=== PATIENT | male | born 1930 | race African-American/Black ===

== ENCOUNTER 2016-06-06 17:12 | Inpatient (IN) | payer OTHER ==
[~2016-06-06] VITALS: Ht 177.8 cm; Wt 79.4 kg
[2016-06-06 18:52] LABS: BASOPHILS % 0.5 % (0.0-2.0); EOSINOPHILS % 0.1 % (0.0-5.0); HEMATOCRIT. 36.4 % (42.0-52.0); HEMOGLOBIN. 12.3 g/dL (14.0-18.0); LYMPHOCYTES % 8.4 % (20.0-50.0); MEAN CORPUSCULAR HEMOGLOBIN 29.8 pg (28.0-32.0); MEAN CORPUSCULAR HGB CONC 33.9 g/dL (31.0-37.0); MEAN CORPUSCULAR VOLUME 87.8 fL (80.0-94.0); MEAN PLATELET VOLUME 6.7 fl (7.4-10.4); MONOCYTES % 4.8 % (2.0-8.0); NEUTROPHILS % 86.2 % (40.0-76.0); PLATELET 323 x1000/uL (130-400); RED BLOOD CELL COUNT 4.15 mill/uL (4.7-6.1); RED CELL DISTRIBUTION WIDTH 15.1 % (11.6-14.6); WHITE BLOOD COUNT 5.9 x1000/uL (4.5-11.0)
[2016-06-06 19:00] LABS: INR 1.1; PARTIAL THROMBOPLASTIN TIME 26.4 sec (24.0-34.0); PROTHROMBIN TIME 11.3 sec
[2016-06-06 19:10] LABS: ALANINE AMINOTRANSFERASE 14 IU/L (13-61); ANION GAP 11; CALCIUM 8.5 mg/dL (8.5-10.1); CARBON DIOXIDE 31 mEq/L (21-32); CHLORIDE 97 mEq/L (98-107); CREATINE KINASE 86 IU/L (39-308); CREATINE KINASE MB FRACTION 2.1 ng/mL (0.5-3.6); INDEX HEMOLYSI 1 (1-3); INDEX ICTERIC 1 (1-4); INDEX LIPEMIC 1 (1-3); LIPASE 148 IU/L (73-393); TROPONIN I < 0.02 ng/mL (0.00-0.04); UREA NITROGEN BLOOD 17 mg/dL (7-21); eGFR > 60 mL/min (>60)
[2016-06-06] MEDS ORDERED: ENALAPRIL 2.5MG TABLET PO ONE (19:45)
[2016-06-06 19:49] LABS: GLUCOSE URINE NEGATIVE (NEGATIVE); KETONES URINE 1+ (NEGATIVE); LEUKOCYTE ESTERASE URINE 1+ (NEGATIVE); NITRITE URINE POSITIVE (NEGATIVE); OCCULT BLOOD URINE NEGATIVE (NEGATIVE); PH URINE 7.5 (4.5-8.0); PROTEIN URINE TRACE (NEGATIVE)
[2016-06-06 19:51] LABS: CLARITY URINE CLEAR (CLEAR); COLOR URINE YELLOW (YELLOW)
[2016-06-06 20:21] LABS: BACTERIA URINE 4+; RBC URINE 0-2 /hpf (0-2); SQUAMOUS EPITHELIAL CELL URINE NONE SEEN /lpf (RARE/1+)
[2016-06-06] MEDS ORDERED: CEFTRIAXONE 1 G PREMIX 50 ML IV ONE (22:45)
[2016-06-06 22:50] VITALS: BP 159/106
[2016-06-06] MEDS ORDERED: MORPHINE SULFATE 2 MG/ML CPJ (NOT FOR IM USE) IV PRN (23:30)
[2016-06-06] MEDS ORDERED: DIPHENHYDRAMINE 50MG/ML VIAL IV PRN (23:30)
[2016-06-06] MEDS ORDERED: CLONIDINE 0.1MG TABLET PO PRN (23:30)
[2016-06-06] MEDS ORDERED: LORAZEPAM 2MG/ML CPJ IV PRN (23:30)
[2016-06-06] MEDS ORDERED: MAGNESIUM/ALUMINUM HYDROXIDE/SIMETHICONE 30ML UDC PO PRN (23:30)
[2016-06-06] MEDS ORDERED: ONDANSETRON HCL 4MG/2ML VIAL IV PRN (23:30)
[2016-06-06] MEDS ORDERED: ACETAMINOPHEN 325MG TABLET PO PRN (23:30)
[2016-06-06] MEDS ORDERED: DOCUSATE SODIUM 100MG CAPSULE PO PRN (23:30)
[2016-06-07 00:08] VITALS: BP 159/106
[2016-06-07] MEDS ORDERED: LEVOFLOXACIN 500MG PREMIX 100 ML IV SCH (02:00)
[2016-06-07 05:40] LABS: BASOPHILS % 0.6 % (0.0-2.0); EOSINOPHILS % 0.3 % (0.0-5.0); HEMATOCRIT. 35.6 % (42.0-52.0); LYMPHOCYTES % 18.4 % (20.0-50.0); MEAN CORPUSCULAR HEMOGLOBIN 29.8 pg (28.0-32.0); MEAN CORPUSCULAR HGB CONC 33.8 g/dL (31.0-37.0); MEAN CORPUSCULAR VOLUME 88.3 fL (80.0-94.0); MEAN PLATELET VOLUME 7.1 fl (7.4-10.4); MONOCYTES % 9.2 % (2.0-8.0); NEUTROPHILS % 71.5 % (40.0-76.0); PLATELET 331 x1000/uL (130-400); RED BLOOD CELL COUNT 4.04 mill/uL (4.7-6.1); RED CELL DISTRIBUTION WIDTH 15.2 % (11.6-14.6)
[2016-06-07 05:55] LABS: CHLORIDE 99 mEq/L (98-107); INDEX HEMOLYSI 1 (1-3); INDEX ICTERIC 1 (1-4); INDEX LIPEMIC 1 (1-3)
[2016-06-07 06:00] VITALS: BP 131/83
[2016-06-07 06:10] LABS: ANION GAP 12; CARBON DIOXIDE 31 mEq/L (21-32); UREA NITROGEN BLOOD 14 mg/dL (7-21)
[2016-06-07 06:10] LABS: *AMPHETAMINES SCREEN URINE NEGATIVE (NEGATIVE); *BARBITURATES SCREEN URINE NEGATIVE (NEGATIVE); *BENZODIAZEPINES SCREEN URINE NEGATIVE (NEGATIVE); *COCAINE SCREEN URINE NEGATIVE (NEGATIVE); CANNABINOID URINE SCREEN NEGATIVE (NEGATIVE); ECSTASY MDMA SCREEN URINE NEGATIVE (NEGATIVE); METHADONE URINE SCREEN NEGATIVE (NEGATIVE); OPIATES URINE SCREEN NEGATIVE (NEGATIVE); PHENCYCLIDINE URINE SCREEN NEGATIVE (NEGATIVE)
[2016-06-07 06:17] LABS: CALCIUM 8.9 mg/dL (8.5-10.1); eGFR > 60 mL/min (>60)
[2016-06-07] MEDS: DEXT 5%/0.45% NACL 1000ML 1,000 ML IV SCH ×2 (06:43→12:41)
[2016-06-07 08:00] VITALS: BP 132/72
[2016-06-07] MEDS ORDERED: LISI2.5T47 PO (08:35)
[2016-06-07] MEDS ORDERED: ENOXAPARIN 40MG/0.4ML SYR SUBCUT SCH (09:00)
[2016-06-07 12:00] VITALS: BP 141/90
[2016-06-07] MEDS ORDERED: MORPHINE SULFATE 2 MG/ML CPJ (NOT FOR IM USE) IV PRN (12:00)
[2016-06-07] MEDS ORDERED: ONDANSETRON HCL 4MG/2ML VIAL IV PRN (12:00)
[2016-06-07] MEDS ORDERED: LACTULOSE 20G/30ML UDC PO SCH (14:00)
[2016-06-07 16:00] VITALS: BP 152/91
[2016-06-07 18:23] VITALS: BP 152/91
== END 2016-06-07 20:10 | disposition home or self-care (01) | DRG 394 ==
LOC: ER 17:14 → 6EST 20:11 → SUPCPDRO 23:18
PROVIDERS: ADMIT Internal Medicine Nephrology; ATTEND Internal Medicine Nephrology
DX: K40.90 Unilateral inguinal hernia, without obstruction or gangrene, not specified as recurrent (principal); K56.60 Unspecified intestinal obstruction; N39.0 Urinary tract infection, site not specified; K44.9 Diaphragmatic hernia without obstruction or gangrene; I51.7 Cardiomegaly; N40.0 Benign prostatic hyperplasia without lower urinary tract symptoms; R73.03 Prediabetes; I11.9 Hypertensive heart disease without heart failure; Z90.49 Acquired absence of other specified parts of digestive tract
CPT/HCPCS: 36415; 71010; 74176; 76705; 80048; 80053; 80305; 81001; 82550; 82553; 83690; 84153; 84484; 85025; 85610; 85730; 87077; 87086; 87186; 93005; 96374; 99291; J0696; J1650; J1956

== ENCOUNTER 2016-11-09 15:35 | Emergency (ER) | payer OTHER ==
[~2016-11-09] VITALS: Ht 175.3 cm; Wt 75.0 kg
[~2016-11-09 15:35] MED LIST: LISI2.5T47 PO
[2016-11-09 18:10] LABS: BASOPHILS % 0.3 % (0.0-2.0); CHLORIDE 91 mEq/L (98-107); EOSINOPHILS % 0.1 % (0.0-5.0); HEMATOCRIT. 39.3 % (42.0-52.0); HEMOGLOBIN. 13.2 g/dL (14.0-18.0); LYMPHOCYTES % 9.1 % (20.0-50.0); MEAN CORPUSCULAR HEMOGLOBIN 28.6 pg (28.0-32.0); MEAN CORPUSCULAR VOLUME 85.4 fL (80.0-94.0); MEAN PLATELET VOLUME 6.8 fl (7.4-10.4); MONOCYTES % 5.5 % (2.0-8.0); PLATELET 321 x1000/uL (130-400); RED BLOOD CELL COUNT 4.61 mill/uL (4.7-6.1); RED CELL DISTRIBUTION WIDTH 16.1 % (11.6-14.6)
[2016-11-09 18:21] LABS: CARBON DIOXIDE 22 mEq/L (21-32); TROPONIN I < 0.02 ng/mL (0.00-0.04)
[2016-11-09 21:30] VITALS: BP 161/77
[2016-11-09] MEDS ORDERED: SODIUM CHLORIDE 0.9% 1,000 ML IV ONE (22:30)
== END 2016-11-10 00:05 | disposition short-term general hospital (02) ==
LOC: ER 15:47
DX: S06.9X1A Unspecified intracranial injury with loss of consciousness of 30 minutes or less, initial encounter (principal); D64.9 Anemia, unspecified; I10 Essential (primary) hypertension; E05.90 Thyrotoxicosis, unspecified without thyrotoxic crisis or storm; E87.1 Hypo-osmolality and hyponatremia; R73.9 Hyperglycemia, unspecified; Z90.49 Acquired absence of other specified parts of digestive tract; W01.190A Fall on same level from slipping, tripping and stumbling with subsequent striking against furniture, initial encounter; Y93.89 Activity, other specified; Y92.018 Other place in single-family (private) house as the place of occurrence of the external cause
CPT/HCPCS: 36415; 70450; 71010; 80053; 83880; 84484; 85025; 93005; 96360; 99285; J7030